=== PATIENT | female | born 1945 | race African-American/Black ===

== ENCOUNTER 2016-08-04 14:27 | Inpatient (IN) | payer MEDICARE ==
[~2016-08-04] VITALS: Ht 154.9 cm; Wt 76.0 kg
[2016-08-05] MEDS ORDERED: VITA100064 PO (08:32)
[2016-08-05] MEDS ORDERED: ALLO300T2 PO (08:32)
[2016-08-05] MEDS ORDERED: BUME1TAB26 PO (08:32)
[2016-08-05] MEDS ORDERED: FERR325T PO (08:32)
[2016-08-05] MEDS ORDERED: CYAN100025 SL (08:32)
[2016-08-05] MEDS ORDERED: LISI10TA3 PO (08:32)
[2016-08-05] MEDS ORDERED: LIPI40TA PO (08:32)
--- NOTE | 2016-08-23 20:53 | MH ---
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 PROPOSED SURGERY Total knee replacement arthroplasty, right. ALLERGIES None. PERSONAL HISTORY She is nonsmoker. She is retired. MEDICATIONS 1. She is on allopurinol. 2. Lisinopril. 3. Lipitor. PAST SURGERIES 1. Lap band many, many years ago with resulting weight loss but she has gained some weight back. 2. Hysterectomy. 3. Left total knee September 2012. HISTORY OF THE PRESENT ILLNESS She has had pain, deformity and instability of this right knee for several years and we have managed it nonoperatively with NSAIDs and cortisone shots and even viscosupplementation. The knee has being giving out on her the last few months associated with pain and therefore she has consented to total knee replacement arthroplasty. The diagnosis, the treatment, the prognosis and the potential risks, hazards, complications expected results have all been discussed with the patient in detail. Informed consent has been obtained. Details of informed consent to be found in the office record. Post hospital and postoperative course have been discussed. Pain management protocol discussed. PHYSICAL EXAMINATION The physical examination reveals that she is 5 feet 1-1/2 inches tall and 154 pounds. HEAD: Normocephalic. Pupils react to light. Face symmetrical. HEART: Regular rhythm. No murmurs. LUNGS: Clear to auscultation. EXTREMITIES: Right knee has a mild valgus deformity in the range of about 10-15 degrees. She has good range of motion. She has palpable pedal pulses in the right foot and good range of motion of the toes. Medical clearance has been obtained. MD MAKAYLA Duncan/JRERELL /8:36 PM /8:48 PM
[2016-08-24] MEDS: LACTATED RINGER'S 1000 ML IV SCH ×2 (06:10→20:52)
[2016-08-24] MEDS ORDERED: INSULIN HUMAN REGULAR 1,000 UNITS/10 ML VIAL SQ PRN (06:15)
[2016-08-24] MEDS: SODIUM CHLORID 0.9% 500 ML IV SCH ×2 (06:15→20:33)
[2016-08-24] MEDS ORDERED: METOPROLOL TARTRATE 25 MG TAB PO PRN (06:15)
[2016-08-24 06:18] VITALS: BP 119/59; PULSE 94; RESP 16; TEMP 98.2; O2SAT 99
[2016-08-24] MEDS: TRANEXAMIC ACID IV SCH ×2 (06:30→07:59)
[2016-08-24] MEDS: POVIDONE IODINE 7.5% SCRUB 118 ML BOTTLE TOP SCH ×2 (06:30→20:52)
[2016-08-24] MEDS ORDERED: VANCOMYCIN 1250 MG/NS 250 ML (for 70-84 kg) IV SCH ×2 (06:30)
[2016-08-24] MEDS: SODIUM CHLORIDE 0.9% IV SCH ×2 (06:30→07:59)
[2016-08-24] MEDS ORDERED: ceFAZolin 2 GM PREMIX 50 ML IV SCH (06:30)
[2016-08-24] MEDS: EXPAREL PERI-ARTICULAR INJECTION (TOTAL VOL. 60 ML) P-ARTICULR SCH ×4 (06:30→09:50)
[2016-08-24] MEDS ORDERED: TOBRAMYCIN SULFATE 1200 MG VIAL ONE (06:34)
[2016-08-24 06:40] VITALS: PULSE 88
[2016-08-24] MEDS ORDERED: MIDAZOLAM HCL 5 MG/5 ML VIAL ONE (06:42)
[2016-08-24] MEDS ORDERED: DEXAMETHASONE SOD PHOS 4 MG/ML VIAL ONE (06:48)
[2016-08-24] MEDS ORDERED: FAMOTIDINE 20 MG/2 ML VIAL ONE (06:49)
[2016-08-24] MEDS ORDERED: GENTAMICIN SULFATE 80 MG/2 ML VIAL XX ONE (08:19)
[2016-08-24] MEDS ORDERED: TOBRAMYCIN SULFATE 1200 MG VIAL OTHER ONE ×3 (08:25→09:38)
[2016-08-24] MEDS ORDERED: SODIUM CHLORIDE 0.9% IV SCH ×2 (09:00→11:00)
[2016-08-24] MEDS ORDERED: TRANEXAMIC ACID IV SCH ×2 (09:00→11:00)
[2016-08-24] MEDS: SODIUM CHLOR 0.9% 1000 ML INJ 1,000 ML IV SCH ×3 (10:24→20:52)
[2016-08-24] MEDS ORDERED: diphenhydrAMINE HCL 50 MG/ML VIAL IV PRN (10:30)
[2016-08-24] MEDS ORDERED: Post-op Orders (for Pharmacy) MISC XX ONE (10:30)
[2016-08-24] MEDS ORDERED: SODIUM CHLORIDE 0.9% FLUSH 5 ML FLUSH IVF PRN (10:30)
[2016-08-24] MEDS ORDERED: ONDANSETRON HCL 4 MG/2 ML VIAL IVP PRN (10:30)
[2016-08-24] MEDS ORDERED: TEMAZEPAM 15 MG CAP PO PRN (10:30)
[2016-08-24] MEDS ORDERED: MORPHINE SULFATE 30 MG/30 ML PCA IV SCH (10:30)
[2016-08-24] MEDS ORDERED: NALOXONE HCL 0.4 MG/ML AMP IV PRN (10:30)
[2016-08-24] MEDS ORDERED: ENOX30P SQ (10:34)
[2016-08-24] MEDS ORDERED: CELE200C PO (10:34)
[2016-08-24] MEDS ORDERED: HYDR-3516 PO (10:34)
--- NOTE | 2016-08-24 10:35 | HHI.FF ---
Face to Face Verification Diagnosis: (1) Total knee replacement status Physical Therapy Gait training Knee: Total knee, Protocol: Right, Full weight bearing Nursing Nursing: Royer teaching, Dressing changes Dressing Changes: Coverderm/Primapore I have seen patient Nilsa Leo on 08/24/16. My clinical findings support the need for the requested home health care services because: Injectable med education/admin I certify that my clinical findings support that this patient is homebound because: Unable to use public transportation Jairo Bhakta MD Aug 24, 2016 10:35
[2016-08-24] MEDS ORDERED: WALKER WHEELS/F1 MIS (10:37)
[2016-08-24] MEDS ORDERED: MISC-163 (10:37)
[2016-08-24] MEDS ORDERED: fentaNYL CITRATE 250 MCG/5 ML AMP ONE (10:43)
[2016-08-24] MEDS ORDERED: DO NOT ADM ANY ANTICOAGULANT DRUGS XX PRN (11:00)
[2016-08-24] MEDS ORDERED: ACETAMINOPHEN 1000 MG/100 ML VIAL IV ONE (11:29)
--- NOTE | 2016-08-24 11:38 | RADRPT ---
EXAM DATE/TIME: 08/24/2016 10:51 [facility] COMPARISON: No previous studies available for comparison. INDICATIONS : Evaluate knee post total replacement. MEDICAL HISTORY : None. SURGICAL HISTORY : None. ENCOUNTER: Initial ACUITY: 1 day PAIN SCORE: 0/10 LOCATION: Right Knee FINDINGS: AP and lateral views of the knee following arthroplasty reveals a prosthesis in anatomic alignment. F racture is not appreciated. Surgical drain is evident CONCLUSION: Status post total knee arthroplasty. Jai Barnes MD FACR Board Certified Radiologist. This report was verified electronically.
[2016-08-24] MEDS: KETOROLAC TROMETHAMINE 30 MG/ML (IVP) VIAL IVP SCH ×2 (11:56→20:25)
[2016-08-24] MEDS: ceFAZolin INJ 2 MG in SODIUM CHLORIDE 0.9% INJ 100 ML IV SCH ×2 (12:00→20:24)
[2016-08-24] MEDS ORDERED: ONDANSETRON HCL 4 MG/2 ML VIAL IV PUSH ONE (12:00)
[2016-08-24] MEDS ORDERED: LACTATED RINGER'S 1000 ML INJ 1,000 ML IV ONE (12:00)
[2016-08-24] MEDS ORDERED: PROPOFOL 200 MG/20 ML AMP IV ONE ×2 (12:00→13:24)
[2016-08-24] MEDS ORDERED: BUPIVACAINE HCL PF 0.5% 30 ML VIAL NB ONE (12:17)
[2016-08-24 12:55] VITALS: BP 100/75; PULSE 94; RESP 18; TEMP 98; O2SAT 100
[2016-08-24 16:00] VITALS: BP 103/58; PULSE 84; RESP 18; TEMP 95.9; O2SAT 100
[2016-08-24 16:38] VITALS: O2SAT 100
[2016-08-24 20:00] VITALS: BP 119/56; PULSE 68; RESP 15; TEMP 96.2; O2SAT 100
[2016-08-24] MEDS: ACETAMINOPHEN 1000 MG/100 ML VIAL IV SCH (20:25)
[2016-08-24] MEDS: SODIUM CHLORIDE 0.9% FLUSH 5 ML FLUSH IVF SCH (20:25)
[2016-08-24] MEDS ORDERED: VANCOMYCIN INJ 1,250 MG in SODIUM CHLOR 0.9% 250 ML INJ 250 ML IV SCH (23:00)
[2016-08-25] VITALS (7 sets, daily range): BP systolic 87–99; BP diastolic 42–52; PULSE 74–92; RESP 16–18; TEMP 97.1–98.8; O2SAT 98–100
[2016-08-25] MEDS: KETOROLAC TROMETHAMINE 30 MG/ML (IVP) VIAL IVP SCH ×3 (04:40→20:03)
[2016-08-25] MEDS: ceFAZolin INJ 2 MG in SODIUM CHLORIDE 0.9% INJ 100 ML IV SCH (04:40)
[2016-08-25 04:56] LABS: HEMATOCRIT 26.5 % (35.0-46.0); REVIEW FLAG FINAL
[2016-08-25 05:24] LABS: BICARBONATE 25.7 MEQ/L (21.0-32.0); POTASSIUM 4.8 MEQ/L (3.5-5.1)
[2016-08-25] MEDS: ACETAMINOPHEN 1000 MG/100 ML VIAL IV SCH ×2 (08:18→20:03)
[2016-08-25] MEDS: SODIUM CHLORIDE 0.9% FLUSH 5 ML FLUSH IVF SCH ×2 (08:19→20:04)
[2016-08-25] MEDS: CELECOXIB 200 MG CAP PO SCH (08:19)
[2016-08-25] MEDS: ENOXAPARIN SODIUM 30 MG/0.3 ML SYRINGE SQ SCH (09:39)
--- NOTE | 2016-08-25 14:11 | PD.ORT.PN ---
Subjective Post Op Day #: 1 Pain Scale: moderate Subjective Remarks ok Range of Motion able to flex to 90- degrees Objective Vitals Vital Signs Date Time Temp Pulse Resp B/P Pulse Ox O2 Delivery O2 Flow Rate FiO2 08/25/16 09:31 99 21 08/25/16 08:00 98.3 92 18 93/52 100 08/25/16 04:46 97.5 78 16 96/50 100 08/25/16 00:00 97.1 75 18 91/52 100 08/24/16 20:00 96.2 68 15 119/56 100 08/24/16 16:38 100 Nasal Cannula 2.00 08/24/16 16:00 95.9 84 18 103/58 100 I/O 08/24/16 08/24/16 08/24/16 08/25/16 08/25/16 08/25/16 07:00 15:00 23:00 07:00 15:00 23:00 Intake Total 2310 ml 480 ml 600 ml 240 ml Output Total 900 ml 450 ml 50 ml 250 ml Balance 1410 ml 30 ml 550 ml -10 ml Intake Oral 960 ml 480 ml 240 ml IV Total 600 ml Other 1350 ml Output Urine Total 750 ml 350 ml 250 ml Drainage Total 100 ml 50 ml Estimated Blood Loss 150 ml # Bowel Movements 0 0 0 Result Diagram: 08/25/16 0427 08/25/16 0427 Imaging Last 48 hours Impressions Knee X-Ray 08/24/16 0000 Signed Impressions: Service Date/Time: Wednesday, August 24, 2016 10:51 - CONCLUSION: Status post total knee arthroplasty. Jai Barnes MD Objective Remarks OOB sitting up with knee flexed 90 degrees able to actively extend Moves toes well Assessment & Plan Ortho Post Op Day #: 1 Problem List: Assessment and Plan Routine post op TKA Jairo Bhakta MD Aug 25, 2016 14:11
[2016-08-25] MEDS: ACETAMINOPHEN/HYDROcodone 325 MG/5 MG TAB PO PRN ×2 (15:15→20:04)
[2016-08-25] MEDS: SODIUM CHLOR 0.9% 1000 ML INJ 1,000 ML IV SCH (16:37)
[2016-08-25] MEDS: DOCUSATE SODIUM 100 MG CAP PO SCH (20:03)
[2016-08-26] VITALS (8 sets, daily range): BP systolic 93–116; BP diastolic 49–63; PULSE 80–90; RESP 16–18; TEMP 97.8–99.1; O2SAT 96–100
[2016-08-26] MEDS: SODIUM CHLOR 0.9% 1000 ML INJ 1,000 ML IV SCH ×3 (02:24→22:24)
[2016-08-26] MEDS: KETOROLAC TROMETHAMINE 30 MG/ML (IVP) VIAL IVP SCH (03:58)
[2016-08-26] MEDS: LACTATED RINGER'S 1000 ML IV SCH (06:15)
[2016-08-26] MEDS: POVIDONE IODINE 7.5% SCRUB 118 ML BOTTLE TOP SCH (06:30)
--- NOTE | 2016-08-26 07:27 | PD.ORT.PN ---
Subjective Post Op Day #: 2 Pain Scale: rough night Range of Motion able to SLR Objective Vitals Vital Signs Date Time Temp Pulse Resp B/P Pulse Ox O2 Delivery O2 Flow Rate FiO2 08/26/16 04:00 99.1 87 18 98/57 97 08/26/16 00:00 98.6 82 18 98/57 96 08/25/16 20:00 98.8 84 18 99/52 100 08/25/16 16:00 97.4 75 18 89/51 98 08/25/16 12:00 97.1 74 18 87/42 100 08/25/16 09:31 99 21 08/25/16 08:00 98.3 92 18 93/52 100 I/O 08/25/16 08/25/16 08/25/16 08/26/16 08/26/16 08/26/16 07:00 15:00 23:00 07:00 15:00 23:00 Intake Total 600 ml 2210 ml 937 ml 480 ml Output Total 50 ml 250 ml 320 ml Balance 550 ml 1960 ml 617 ml 480 ml Intake Oral 1440 ml 320 ml 480 ml IV Total 600 ml 770 ml 617 ml Output Urine Total 250 ml 320 ml Drainage Total 50 ml # Voids 1 2 # Bowel Movements 0 0 0 Result Diagram: 08/25/16 0427 08/25/16 0427 Imaging Last 48 hours Impressions Knee X-Ray 08/24/16 0000 Signed Impressions: Service Date/Time: Wednesday, August 24, 2016 10:51 - CONCLUSION: Status post total knee arthroplasty. Jai Barnes MD Objective Remarks In bed. Dressings on with ice machine, able to SLR. moves toes well Assessment & Plan Ortho Post Op Day #: 2 Problem List: Assessment and Plan Routine post op TKA DC in AM with [facility] Jairo Bhakta MD Aug 26, 2016 07:27
[2016-08-26] MEDS: CELECOXIB 200 MG CAP PO SCH (08:26)
[2016-08-26] MEDS: DOCUSATE SODIUM 100 MG CAP PO SCH ×2 (08:26→20:44)
[2016-08-26] MEDS: ENOXAPARIN SODIUM 30 MG/0.3 ML SYRINGE SQ SCH (08:26)
[2016-08-26] MEDS: ACETAMINOPHEN 1000 MG/100 ML VIAL IV SCH ×2 (08:27→20:45)
[2016-08-26] MEDS: ACETAMINOPHEN/HYDROcodone 325 MG/5 MG TAB PO PRN ×3 (08:27→20:46)
[2016-08-26] MEDS: SODIUM CHLORIDE 0.9% FLUSH 5 ML FLUSH IVF SCH ×2 (08:28→20:50)
[2016-08-27 04:32] VITALS: BP 109/63; PULSE 88; RESP 17; TEMP 98.5; O2SAT 98
[2016-08-27] MEDS: LACTATED RINGER'S 1000 ML IV SCH (06:15)
[2016-08-27 08:00] VITALS: BP 127/73; PULSE 94; RESP 18; TEMP 100.2; O2SAT 99
[2016-08-27] MEDS: DOCUSATE SODIUM 100 MG CAP PO SCH (08:16)
[2016-08-27] MEDS: SODIUM CHLORIDE 0.9% FLUSH 5 ML FLUSH IVF SCH (08:16)
[2016-08-27] MEDS: ACETAMINOPHEN/HYDROcodone 325 MG/5 MG TAB PO PRN ×2 (08:16→12:00)
[2016-08-27] MEDS: CELECOXIB 200 MG CAP PO SCH (08:16)
[2016-08-27] MEDS: ACETAMINOPHEN 1000 MG/100 ML VIAL IV SCH (08:17)
[2016-08-27] MEDS: ENOXAPARIN SODIUM 30 MG/0.3 ML SYRINGE SQ SCH (08:17)
[2016-08-27] MEDS: SODIUM CHLOR 0.9% 1000 ML INJ 1,000 ML IV SCH ×2 (08:20→08:23)
--- NOTE | 2016-08-27 08:24 | PD.ORT.PN ---
Subjective Post Op Day #: 3 Pain Scale: 2 Subjective Remarks chilly Range of Motion Needs help with SLR Objective Vitals Vital Signs Date Time Temp Pulse Resp B/P Pulse Ox O2 Delivery O2 Flow Rate FiO2 08/27/16 04:32 98.5 88 17 109/63 98 08/26/16 23:44 98.5 88 16 109/63 98 08/26/16 19:00 98.8 90 16 116/61 98 08/26/16 16:00 97.8 80 18 105/61 100 08/26/16 12:00 98.7 88 18 107/59 100 08/26/16 09:11 97 21 I/O 08/26/16 08/26/16 08/26/16 08/27/16 08/27/16 08/27/16 07:00 15:00 23:00 07:00 15:00 23:00 Intake Total 480 ml 1200 ml 480 ml 480 ml Balance 480 ml 1200 ml 480 ml 480 ml Intake Oral 480 ml 1200 ml 480 ml 480 ml # Voids 2 3 3 3 # Bowel Movements 0 0 0 0 Result Diagram: 08/25/16 0427 08/25/16 0427 Imaging Last 48 hours Impressions Knee X-Ray 08/24/16 0000 Signed Impressions: Service Date/Time: Wednesday, August 24, 2016 10:51 - CONCLUSION: Status post total knee arthroplasty. Jai Barnes MD Objective Remarks In bed. Dressings on, dry, not much swelling. moves toes well Assessment & Plan Ortho Post Op Day #: 3 Problem List: Assessment and Plan Instructed on quads,SLR,. DC, Rxs and followup Jairo Bhakta MD Aug 27, 2016 08:24
--- NOTE | 2016-08-27 08:33 | HHI.DS ---
Discharge Summary Admission Date Aug 24, 2016 at 05:33 Discharge Date: Aug 27, 2016 Admitting Diagnosis OA right knee Diagnosis: (1) Total knee replacement status Diagnosis: Principal Procedures TKA right Brief History This is a 71 year old female patient CBC/BMP: 08/25/167 08/25/16426 Significant Findings Laboratory Tests Test 08/25/16 04:27 Hemoglobin 8.7 GM/DL (11.6-15.3) Hematocrit 26.5 % (35.0-46.0) Blood Urea Nitrogen 38 MG/DL (7-18) Creatinine 1.16 MG/DL (0.50-1.00) Estimat Glomerular Filtration 56 ML/MIN (>89) Rate Random Glucose 184 MG/DL (74-106) Calcium Level 8.2 MG/DL (8.5-10.1) PE at Discharge In bed. Dressings on, dry, not much swelling. moves toes well Hospital Course Did well routine post op TKA Pt Condition on Discharge: Good Discharge Disposition: Disch w/ Home Health Serv Discharge Instructions Diet Instructions: As Tolerated, No Restrictions Activities You Can Perform: Weight Bearing as [place] Activities to Avoid: Strenuous Activity, Shower, Driving, Sexual Activity Jairo Bhakta MD Aug 27, 2016 08:33
[2016-08-27] MEDS ORDERED: MAGNESIUM HYDROXIDE SUSP 30 ML CUP PO PRN (10:00)
[2016-08-27] MEDS ORDERED: POLYETHYLENE GLYCOL 17 GM PKG PO PRN (10:00)
--- NOTE | 2016-08-30 13:54 | MP ---
cc: RYAN BHAKTA DATE OF SURGERY 08/24/2016 PREOPERATIVE DIAGNOSIS Osteoarthritis right knee with a valgus deformity. POSTOPERATIVE DIAGNOSIS Osteoarthritis right knee with a valgus deformity. OPERATIVE PROCEDURE Total knee replacement arthroplasty right knee using [employer] cemented components - Femur 62.5-mm right, tibia 67-mm, patella extra small, polyethylene insert 12-mm standard SURGEON Dr. Bhakta ANESTHESIA Spinal. TECHNIQUE After induction of spinal anesthesia, the tourniquet was applied. A Hendricks catheter was introduced. The right lower extremity was thoroughly prepped with alcohol and ChloraPrep and draped in routine fashion. After application of the Esmarch bandage, the tourniquet inflated to 300 mmHg. A midline skin incision was made, thereby we had to deal with about 2 inches of fat in the suprapatellar area and not much fat below the knee. Careful of skin flap was raised on the medial side. Medial parapatellar arthrotomy incision was carried out, followed by partial synovectomy over the suprapatellar area just above the femur to expose the bone. Anterior joint was debrided, the medial structures elevated off of the tibia including excision of a significant osteophyte on the anteromedial corner. The knee was flexed, the femoral canal opened anterior to the posterior cruciate ligament. Distal femoral cutting guide set at 5 mm of valgus was used. Distal femoral cut was made. Proximal tibial cut was made referencing 6-mm from the intact central portion of the medial tibial plateau and I liked the shape and size of the bone removal. Epicondylar axis was marked. There is certainly wear of the posterior lateral condyle and therefore the guide was set at 6 degrees and AP and chamfer cuts made per a 65-mm cutting block. Posterior condyles were checked, osteophytes were removed. The joint was debrided. The knee was then extended and then the arcuate ligament attachment to the proximal tibia was released under the direct vision taking great care of with a laminar emergency vehicle operations instructor in the joint. The spacer block was now used and it shows still some tightness in flexion on the lateral side. Otherwise the knee is pretty well balanced. We went ahead and did a Z-plasty of the iliotibial band under direct vision. The trial tibial implant was then placed after preparing the proximal tibia, then the femur and a 12-mm polyethylene fits nicely. The patella was prepared following routine technique and once the patella implant was placed there was some tightness in flexion and therefore the lateral release was extended more proximally (the Z-plasty of the iliotibial band) and we decided to use a 62.5-mm trial and everything looks good now. The patient is quite osteoporotic and the anchoring hole for the patella had migrated inferior medially. Bony surfaces were thoroughly lavaged and dried. The bone graft was placed in the hole of the patella to make it proper size and location. Using 2 units of cobalt cement with 1200 mg of tobramycin in it, the tibial implant was placed first, all excess cement removed followed by the femoral implant, all excess cement removed. The knee was extended with a 12-mm spacer followed by placing the patella carefully to make sure it did not migrate and cementing it. The tourniquet was released. Hemostasis was obtained by cautery. The joint was thoroughly lavaged and suctioned out. The knee was tested once cement solidified and everything looks good. A 12-mm flat insert was placed and clipped. Hemovac drain was introduced and closure was carried out with three interrupted Vicryl sutures in the superior medial aspect of the patellar retinaculum, followed by #2 Stratafix, the subcutaneous tissue closed with 2-0 Vicryl, the skin with 3-0 subcuticular Monocryl and Steri-Strips. Dressing was applied with Xeroform, 4x4s, ABD, Sof-Rol and Santana bandage, ice bladder incorporated in it. The patient was transferred to the recovery room in satisfactory condition. The patient tolerated the procedure well. TRANSFUSIONS AND COMPLICATIONS None. POSTOPERATIVE CONDITION Satisfactory. PROGNOSIS Good. ESTIMATED BLOOD LOSS 100 cc. MD MAKAYLA Duncan/LISA /10:18 AM /1:42 PM
--- NOTE | 2016-10-19 13:00 | MD ---
cc: RYAN PORTILLO ADMISSION DATE: 08/24/2016 DISCHARGE DATE: 08/27/2016 ADMISSION DIAGNOSIS Osteoarthritis right knee with a valgus deformity. POSTOPERATIVE DIAGNOSIS Osteoarthritis right knee with a valgus deformity. SURGICAL PROCEDURE Total knee replacement arthroplasty, right knee. HISTORY This patient had many years' history of osteoarthritis both knees with valgus deformities. She underwent total knee replacement arthroplasty left knee about 3-4 years ago and did very well from it. She has been postponing surgery on the right knee for quite some time. She has received steroid injections, viscosupplementation and NSAIDs over the last several years. HOSPITAL COURSE After appropriate preoperative workup she was admitted to the hospital and underwent the surgery on the day of admission. Postoperative course was uneventful. Routine postoperative pain management for total knee replacement including narcotics IV ___ IV Tylenol were all used. She did very well. Postoperative x-rays and laboratory studies were satisfactory. The patient was ambulated with the help of physical therapy and regained range of motion quite quickly including ability to do straight leg raising and to go to the bathroom with the use of a walker. Patient was discharged with arrangements having been made for Home Health Care for physical therapy and nursing as well as for administration of Lovenox for prophylactic anticoagulation. She was also discharged on Celebrex 200 mg daily and hydrocodone for pain and to continue her preoperative routine medications. The patient to see me in the office in 2 weeks postoperatively. DISCHARGE CONDITION Stable. PROGNOSIS Good. MD MAKAYLA Duncan/BABATUNDE /12:39 PM /11:35 AM
== END 2016-08-27 12:31 | disposition home health service (06) | DRG 470 ==
LOC: HSDI 08-24 05:33 → N06B 08-24 13:14
PROVIDERS: ADMIT Orthopaedic Surgery; ATTEND Orthopaedic Surgery
PROC: 3E0T3CZ (ICD-10-PCS; 2016-08-24)
PROC: 0SRC0J9 Replacement of Right Knee Joint with Synthetic Substitute, Cemented, Open Approach (ICD-10-PCS; principal; 2016-08-24 07:34)
DX: M17.11 Unilateral primary osteoarthritis, right knee (principal); E11.9 Type 2 diabetes mellitus without complications; I10 Essential (primary) hypertension; M21.061 Valgus deformity, not elsewhere classified, right knee; E78.5 Hyperlipidemia, unspecified; Z98.84 Bariatric surgery status
CPT/HCPCS: 73560; 80048; 82948; 85014; 85018; 86850; 86900; 86901; 94150; C1776; C9290; J0131; J0690; J1100; J1580; J1650; J1885; J2250; J2270; J2405; J3010; J3260; J3370; J7030; J7050; J7120; L1830